=== PATIENT | male | born 1960 | race Caucasian/White ===

== ENCOUNTER 2019-01-14 06:20 | Emergency (ER) | payer BC, OTHER ==
[~2019-01-14] VITALS: Ht 185.4 cm; Wt 97.5 kg
--- NOTE | 2019-01-14 06:28 | NUR ---
ED Nurse Note: pt came to ed c/o URQ ABD PAIN X 1 DAY RADIATING TO LRQ AND BACK. AO4. NAD. VSS.
--- NOTE | 2019-01-14 06:30 | NUR ---
ED Nurse Note: IV ACCESS ESTABLISHED. BLOOD AND URINE COLLECTED; SENT DOWN TO LAB.
[2019-01-14 06:40] VITALS: BP 166/96
[2019-01-14] MEDS ORDERED: Lidocaine 2% Visc 15ml soln ORAL ONE (06:45)
[2019-01-14] MEDS ORDERED: Mylanta II UD 30ml ORAL ONE (06:45)
[2019-01-14] MEDS ORDERED: Dicyclomine HCl 10mg/5ml oral soln ORAL ONE (06:45)
[2019-01-14 06:50] LABS: APPEARANCE,URINE CLEAR; BILIRUBIN, URINE NEGATIVE (NEGATIVE); COLOR,URINE PALE YELLOW; GLUCOSE, URINE (UA) NEGATIVE (NEGATIVE); KETONES,URINE NEGATIVE (NEGATIVE); LEUKOCYTE ESTERASE ,URINE NEGATIVE (NEGATIVE); NITRITE,URINE NEGATIVE (NEGATIVE); PH,URINE 6 (4.5-8.0); PROTEIN,URINE NEGATIVE (NEGATIVE); UROBILINOGEN,URINE NORMAL MG/DL (0.0-1.0)
[2019-01-14 07:03] LABS: ANION GAP 16 mmol/L (5-15); BLOOD UREA NITROGEN 10 mg/dL (7-18); CALCIUM 9.5 MG/DL (8.5-10.1); CARBON DIOXIDE 26 MMOL/L (21-32); CHLORIDE 99 MMOL/L (98-107); CREATININE 1.3 MG/DL (0.55-1.30); SODIUM 140 MMOL/L (136-145)
[2019-01-14 07:09] LABS: ALANINE AMINOTRANSFERASE 30 U/L (12-78); ALBUMIN 4.7 G/DL (3.4-5.0); ALBUMIN/GLOBULIN RATIO 1.7 (1.0-2.7); ALKALINE PHOSPHATASE 67 U/L (46-116); ASPARTATE AMINO TRANSFERASE 10 U/L (15-37); BILIRUBIN,TOTAL 0.4 MG/DL (0.2-1.0)
[2019-01-14 07:12] LABS: BASOPHILS % (AUTO) 1.1 % (0.0-2.0); EOSINOPHILS % (AUTO) 2.2 % (0.0-3.0); HEMATOCRIT 49.2 % (42.0-52.0); HEMOGLOBIN 17.5 G/DL (14.2-18.0); LYMPHOCYTES % (AUTO) 34.6 % (20.0-45.0); MEAN CORPUSCULAR VOLUME 83 FL (80-99); MONOCYTES % (AUTO) 9.1 % (1.0-10.0); PLATELET COUNT 282 K/UL (150-450); RED BLOOD COUNT 5.92 M/UL (4.70-6.10); RED CELL DISTRIBUTION WIDTH 11.2 % (11.6-14.8); WHITE BLOOD COUNT 12.3 K/UL (4.8-10.8)
--- NOTE | 2019-01-14 07:25 | NUR ---
ED Nurse Note: pt c/o abdominal cramps and requesting muscle relaxant. ERMD made aware.
[2019-01-14] MEDS ORDERED: Methocarbamol 750mg tab ORAL ONE (07:30)
[2019-01-14] MEDS ORDERED: Isovue-300 100ml vial INJ PRN (07:45)
[2019-01-14] MEDS ORDERED: Ketorolac 30mg Inj IV ONE (07:45)
--- NOTE | 2019-01-14 08:03 | NUR ---
ED Nurse Note: Pt reported improved pain level to 5/10.
--- NOTE | 2019-01-14 08:05 | NUR ---
ED Nurse Note: pt went down to CT scan in improved pain level and stable condition. pt insisted to walk as stating "Walking actually reduces my pain."
--- NOTE | 2019-01-14 08:40 | Diagnostic Imaging Report ---
EXAM: CT Abdomen and Pelvis With Intravenous Contrast CLINICAL HISTORY: ABD PAIN TECHNIQUE: Axial computed tomography images of the abdomen and pelvis with intravenous contrast. CTDI is 18.16 mGy and DLP is 1048 mGy-cm. One or more of the following dose reduction techniques were used: automated exposure control, adjustment of the mA and/or kV according to patient size, use of iterative reconstruction technique. Coronal and sagittal reformatted images were created and reviewed. COMPARISON: No relevant prior studies available. FINDINGS: Lung bases: Scattered subcentimeter thin-walled pulmonary cysts versus blebs in bilateral lung bases. ABDOMEN: Liver: 1.5 cm simple-appearing cyst in the left hepatic lobe. Gallbladder and bile ducts: Unremarkable. No calcified stones. No ductal dilation. Pancreas: Unremarkable. No mass. No ductal dilation. Spleen: Unremarkable. No splenomegaly. Adrenals: Unremarkable. No mass. Kidneys and ureters: Mild bilateral perinephric stranding, nonspecific. No evidence of obstructive uropathy. No visible renal masses. Stomach and bowel: Colonic diverticulosis. Mild wall thickening throughout the descending and sigmoid colon may be related to underdistention versus a low-grade diverticulitis or colitis. Remainder of the colon appears unremarkable. No abnormally distended loops of small bowel. GE junction and stomach appear unremarkable. PELVIS: Appendix: The appendix appears normal. Bladder: Unremarkable. No visible stones. Reproductive: The prostate gland and seminal vesicles appear unremarkable. ABDOMEN and PELVIS: Intraperitoneal space: Unremarkable. No free air. No significant fluid collection. Bones/joints: Mild degenerative disc space loss throughout the lumbar spine, most prominent at L4-5. No acute fracture. No dislocation. Soft tissues: Unremarkable. Vasculature: Unremarkable. No abdominal aortic aneurysm. Lymph nodes: Unremarkable. No enlarged lymph nodes. IMPRESSION: 1. Colonic diverticulosis. Mild wall thickening throughout the descending and sigmoid colon may be related to underdistention versus a low-grade diverticulitis or colitis. No adjacent inflammatory stranding, free air, or fluid. 2. Mild bilateral perinephric stranding, nonspecific. No evidence of obstructive uropathy. 3. 1.5 cm simple-appearing cyst in the left hepatic lobe.
[2019-01-14] MEDS ORDERED: CIPROFLOXACIN500 M2 ORAL (09:20)
[2019-01-14] MEDS ORDERED: IBUPROFEN600 MG ORAL (09:20)
[2019-01-14] MEDS ORDERED: METRONIDAZOLE500 MG ORAL (09:20)
[2019-01-14 09:26] VITALS: BP 121/84
--- NOTE | 2019-01-14 09:27 | NUR ---
ER DISCHARGE NOTE: Patient is cleared to be discharged per ERMD, pt is aox4, accompanied by family member, on room air, with stable vital signs. pt was given dc and prescription electronically instructions, pt was able to verbalize understanding, pt id band and iv site removed without complications. pt is able to ambulate with steady gait. pt took all belongings.
[2019-01-14] MEDS ORDERED: Ciprofloxacin 500mg tab ORAL ONE (09:30)
[2019-01-14] MEDS ORDERED: metroNIDAZOLE 500mg tab ORAL ONE (09:30)
--- NOTE | 2019-01-14 09:58 | Emergency Room Report ---
History of Present Illness General Chief Complaint: Abdominal Pain Source: Patient Present Illness HPI 58-year-old male presents ED for evaluation. Walked in complaining of abdominal pain which started early this morning. Is cramping, right-sided, radiating to the back. 5 out of 10. Denies nausea or vomiting. Denies diarrhea. Denies sick contacts recent travel. Denies chest pain or shortness of breath. No other aggravating relieving factors. Denies any other associated symptoms Allergies: Coded Allergies: No Known Allergies (Unverified , 01/14/19) Patient History Past Medical History: psych hx Past Surgical History: none Pertinent Family History: none Social History: Denies: smoking, alcohol use, drug use Immunizations: UTD Reviewed Nursing Documentation: PMH: Agreed; PSxH: Agreed Nursing Documentation-PMH Past Medical History: No History, Except For History Of Psychiatric Problem: Yes - DEPRESSION Review of Systems All Other Systems: negative except mentioned in HPI Physical Exam Vital Signs Date Time Temp Pulse Resp B/P (MAP) Pulse Ox O2 Delivery O2 Flow Rate FiO2 01/14/19 06:24 97.9 68 16 160/89 (112) 98 Room Air Sp02 EP Interpretation: reviewed, normal General Appearance: no apparent distress, alert, GCS 15, non-toxic Head: normocephalic, atraumatic Eyes: bilateral eye normal inspection, bilateral eye PERRL ENT: hearing grossly normal, normal pharynx, no angioedema, normal voice Neck: full range of motion, supple/symm/no masses Respiratory: chest non-tender, lungs clear, normal breath sounds, speaking full sentences Cardiovascular #1: regular rate, rhythm, no edema Cardiovascular #2: 2+ carotid (R), 2+ carotid (L), 2+ radial (R), 2+ radial (L) , 2+ dorsalis pedis (R), 2+ dorsalis pedis (L) Gastrointestinal: normal bowel sounds, soft, non-distended, no guarding, no rebound, tenderness - R sided abdomen Rectal: deferred Genitourinary: normal inspection, no CVA tenderness Musculoskeletal: back normal, gait/station normal, normal range of motion, non- tender Neurologic: alert, oriented x3, responsive, motor strength/tone normal, sensory intact, speech normal Psychiatric: judgement/insight normal, memory normal, mood/affect normal, no suicidal/homicidal ideation Reflexes: 3+ bicep (R), 3+ bicep (L), 3+ tricep (R), 3+ tricep (L), 3+ knee (R) , 3+ knee (L) Skin: normal color, no rash, warm/dry, well hydrated Lymphatic: no adenopathy Medical Decision Making Diagnostic Impression: Primary Impression: Diverticulitis ER Course Hospital Course 58-year-old M presents to ED with abdominal pain Differential diagnoses include: appendicitis, diverticulitis, SBO, gastroenteritis Clinical course Patient placed on stretcher. hospital monitor. After initial history and physical I ordered labs, IV fluids, UA, pain medication and CT scan Labs - no leukocytosis, Hb/Hct stable. electrolytes ok. CT abdomen and pelvis - diverticulitis vs colitis Discussed findings with the patient. Afebrile, nontoxic-appearing. Stable vitals. Unremarkable labs. Patient can likely be discharged home with antibiotics. Given Cipro and Flagyl here. Safe for discharge with close outpatient follow-up. Will provide referrals I feel this is a highly complex case requiring extensive working including EKG/ Rhythm strip, Xray/CT/US, Blood/urine lab work, repeat exams while in ED, and administration of strong opiates/narcotics for pain control, admission to hospital or close patient follow up. Diagnosis - divertculitis stable and discharged to home with prescription for Cipro and Flagyl, motrin. Followup with PMD. Return to ED if symptoms recur or worsen Labs Test 01/14/19 06:30 White Blood Count 12.3 K/UL (4.8-10.8) Red Blood Count 5.92 M/UL (4.70-6.10) Hemoglobin 17.5 G/DL (14.2-18.0) Hematocrit 49.2 % (42.0-52.0) Mean Corpuscular Volume 83 FL (80-99) Mean Corpuscular Hemoglobin 29.6 PG (27.0-31.0) Mean Corpuscular Hemoglobin Concent 35.6 G/DL (32.0-36.0) Red Cell Distribution Width 11.2 % (11.6-14.8) Platelet Count 282 K/UL (150-450) Mean Platelet Volume 7.6 FL (6.5-10.1) Neutrophils (%) (Auto) 53.0 % (45.0-75.0) Lymphocytes (%) (Auto) 34.6 % (20.0-45.0) Monocytes (%) (Auto) 9.1 % (1.0-10.0) Eosinophils (%) (Auto) 2.2 % (0.0-3.0) Basophils (%) (Auto) 1.1 % (0.0-2.0) Urine Color Pale yellow Urine Appearance Clear Urine pH 6 (4.5-8.0) Urine Specific [place] 1.020 (1.005-1.035) Urine Protein Negative (NEGATIVE) Urine Glucose (UA) Negative (NEGATIVE) Urine Ketones Negative (NEGATIVE) Urine Blood Negative (NEGATIVE) Urine Nitrite Negative (NEGATIVE) Urine Bilirubin Negative (NEGATIVE) Urine Urobilinogen Normal MG/DL (0.0-1.0) Urine Leukocyte Esterase Negative (NEGATIVE) Sodium Level 140 MMOL/L (136-145) Potassium Level 3.0 MMOL/L (3.5-5.1) Chloride Level 99 MMOL/L (98-107) Carbon Dioxide Level 26 MMOL/L (21-32) Anion Gap 16 mmol/L (5-15) Blood Urea Nitrogen 10 mg/dL (7-18) Creatinine 1.3 MG/DL (0.55-1.30) Estimat Glomerular Filtration Rate 56.9 mL/min (>60) Glucose Level 144 MG/DL (74-106) Calcium Level 9.5 MG/DL (8.5-10.1) Total Bilirubin 0.4 MG/DL (0.2-1.0) Aspartate Amino Transf (AST/SGOT) 10 U/L (15-37) Alanine Aminotransferase (ALT/SGPT) 30 U/L (12-78) Alkaline Phosphatase 67 U/L (46-116) Total Protein 7.4 G/DL (6.4-8.2) Albumin 4.7 G/DL (3.4-5.0) Globulin 2.7 g/dL Albumin/Globulin Ratio 1.7 (1.0-2.7) Lipase 177 U/L (73-393) CT/MRI/US Diagnostic Results CT/MRI/US Diagnostic Results : Imaging Test Ordered: CT A/P Impression 1. Colonic diverticulosis. Mild wall thickening throughout the descending and sigmoid colon may be related to underdistention versus a low-grade diverticulitis or colitis. No adjacent inflammatory stranding, free air, or fluid. 2. Mild bilateral perinephric stranding, nonspecific. No evidence of obstructive uropathy. 3. 1.5 cm simple-appearing cyst in the left hepatic lobe. Last Vital Signs Date Time Temp Pulse Resp B/P (MAP) Pulse Ox O2 Delivery O2 Flow Rate FiO2 01/14/19 09:26 98.1 86 16 121/84 98 Room Air Status: improved Disposition: HOME, SELF-CARE Condition: Stable Scripts Metronidazole* (FLAGYL*) 500 Mg Tablet 500 MG ORAL THREE TIMES A DAY, #21 TAB Prov: Octavio Kuo MD 01/14/19 Ciprofloxacin Hcl* (CIPROFLOXACIN HCL*) 500 Mg Tablet 500 MG ORAL Q12H, #14 TAB 0 Refills Prov: Octavio Kuo MD 01/14/19 Ibuprofen* (MOTRIN*) 600 Mg Tablet 600 MG ORAL Q8H PRN for For Pain, #30 TAB 0 Refills Prov: Octavio Kuo MD 01/14/19 Referrals: NON PHYSICIAN (PCP) Julia Thomas. [facility] Patient Instructions: Diverticulitis, Qest-fr-Rxed Octavio Kuo MD Jan 14, 2019 09:58
== END 2019-01-14 09:29 | disposition home or self-care (01) ==
LOC: EMR 06:41
DX: K57.92 Diverticulitis of intestine, part unspecified, without perforation or abscess without bleeding (principal); F32.9 Major depressive disorder, single episode, unspecified
CPT/HCPCS: 36415; 74177; 80053; 81003; 83690; 85025; 96361; 96374; 96375; 99284; J1885; J2405; Q9967; S0028; J8499